=== PATIENT | female | born 2000 | race American Indian/Alaskan Native ===

== ENCOUNTER 2019-03-26 23:30 | Observation (INO) | payer BC, MEDICAID ==
[2019-03-27] MEDS ORDERED: LACTATED RINGERS 1,000 ML ONE (00:35)
[2019-03-27] MEDS ORDERED: ePHEDrine SULFATE 50 MG/1 ML INJ IV PRN (01:07)
[2019-03-27] MEDS ORDERED: LIDOCAINE (2%) 20 MG/1 ML VIAL 20 ML MDV INFILTRATI ONE (01:07)
[2019-03-27 01:32] LABS: Hematocrit 27.6 % (30.3-42.9); Hemoglobin 9.1 gm/dl (10.1-14.3); Mean Corpuscular HGB Conc 33 % (30-34); Mean Corpuscular Volume 72 fl (79-97); Platelet Count 284 K/mm3 (140-440); Red Blood Count 3.83 M/mm3 (3.65-5.03); Red Cell Distribution Width 19.8 % (13.2-15.2)
[2019-03-27 01:35] LABS: Mucus,Urine FEW /HPF
[2019-03-27 01:36] LABS: Bilirubin,Urine NEG (Negative); Blood,Urine NEG (Negative); Color,Urine Yellow (Yellow)
[2019-03-27] MEDS ORDERED: LACTATED RINGERS 1,000 ML IV ONE (01:56)
[2019-03-27] MEDS ORDERED: LACTATED RINGERS 1,000 ML IV SCH (02:00)
[2019-03-27] MEDS ORDERED: OXYTOCIN 20 UNIT/1000ML DRIP 20 UNITS/1,000 ML BAG IV SCH (02:00)
[2019-03-27 02:22] LABS: Alanine Aminotransferase 8 units/L (7-56); Uric Acid 5.1 mg/dL (3.5-7.6)
--- NOTE | 2019-03-27 02:31 | Ultrasound Report ---
Limited OB Ultrasound HISTORY: twins gestation lie. TECHNIQUE: Grayscale and color Doppler imaging performed. COMPARISON: None FINDINGS: Limited exam was performed to determine position. Twin A is cephalic in presentation with heart rate of 150 bpm. Twin B is also cephalic in presentation with heart rate of 159 bpm. Placenta is left lateral and position IMPRESSION: positioning as above. Signer Name: Cj Huynh MD Signed: 03/27/2019 2:27 AM Workstation Name: [id number]
[2019-03-27 08:05] VITALS: BP 120/72
== END 2019-03-27 08:30 | disposition home or self-care (01) ==
LOC: TRG 23:30 → INTOOBSV 03-27 01:29 → LD 03-27 01:29
PROVIDERS: ADMIT Obstetrics & Gynecology; ATTEND Obstetrics & Gynecology
DX: O30.003 Twin pregnancy, unspecified number of placenta and unspecified number of amniotic sacs, third trimester (principal); Z3A.37 37 weeks gestation of pregnancy
CPT/HCPCS: 36415; 76815; 81001; 82565; 83615; 84450; 84460; 84550; 85027; 86850; 86900; 86901; G0378; J7120

== ENCOUNTER 2019-04-20 13:28 | Outpatient (CLI) | payer BC, MEDICAID ==
[2019-04-20] MEDS ORDERED: LIDOCAINE (4%) 40 MG/ML TOPICAL SOLN 50 ML BOTTLE TP ONE (14:54)
== END 2019-04-20 13:29 | disposition home or self-care (01) ==
LOC: WOUND 13:28
PROVIDERS: ATTEND Surgery
DX: T81.89XA Other complications of procedures, not elsewhere classified, initial encounter (principal); F32.9 Major depressive disorder, single episode, unspecified; Z87.891 Personal history of nicotine dependence; Y83.8 Other surgical procedures as the cause of abnormal reaction of the patient, or of later complication, without mention of misadventure at the time of the procedure; Y92.89 Other specified places as the place of occurrence of the external cause
CPT/HCPCS: 11042; G0463; 99214

== ENCOUNTER 2019-04-28 13:17 | Outpatient (CLI) | payer BC, MEDICAID ==
[2019-04-28] MEDS ORDERED: LIDOCAINE (4%) 40 MG/ML TOPICAL SOLN 50 ML BOTTLE TP ONE (13:28)
== END 2019-04-28 13:18 | disposition home or self-care (01) ==
LOC: WOUND 13:17
PROVIDERS: ATTEND Surgery
DX: T81.89XD Other complications of procedures, not elsewhere classified, subsequent encounter (principal); F32.9 Major depressive disorder, single episode, unspecified; Z87.891 Personal history of nicotine dependence; Y83.8 Other surgical procedures as the cause of abnormal reaction of the patient, or of later complication, without mention of misadventure at the time of the procedure